=== PATIENT | male | born 1940 | race Caucasian/White ===

== ENCOUNTER 2019-06-11 10:10 | Outpatient (CLI) | payer MEDICARE, OTHER ==
[2019-06-11 11:40] LABS: #Eosinphils 0.2 thou/uL (0.0-0.7); #Lymphocytes 1.3 thou/uL (1.20-3.40); #Monocytes 0.7 thou/uL (0.11-0.59); #Neutrophils 7.3 thou/uL (1.40-6.50); %Basophils 0.1 % (0.0-1.0); %Eosinophils 1.8 % (0.0-10.0); %Lymphocytes 14.1 % (21.0-51.0); %Monocytes 7.7 % (0.0-10.0); %Neutrophils 76.4 % (42.0-75.0); Hemoglobin 14.9 g/dL (14.0-18.0); Mean Corpuscular HGB CONC 34.6 g/dL (32.0-36.0); Mean Corpuscular Hemoglobin 37.1 pg (27.0-31.0); Mean Platelet Volume 8.5 fL (7.4-10.4); Platelet Count 187 thou/uL (130-400); RBC Distribution Width 11.4 % (11.5-14.5); Red Blood Cell (RBC) Count 4.02 mill/uL (4.70-6.10); White Blood Cell (WBC) Count 9.5 thou/uL (4.8-10.8)
[2019-06-11 12:07] LABS: Anion Gap 14 mmol/L (10-20); BUN (Urea Nitrogen) 18 mg/dL (8.4-25.7); Calc. Creatinine Clearance 0 mL/min (70-130); Calcium 9.2 mg/dL (7.8-10.44); Carbon Dioxide 26 mmol/L (23-31); Chloride 106 mmol/L (98-107); Estimated GFR-MDRD 61; Glucose 106 mg/dL (83-110); Potassium 4.7 mmol/L (3.5-5.1); Sodium 141 mmol/L (136-145)
== END 2019-06-11 10:11 | disposition home or self-care (01) ==
LOC: LABBT 10:10
PROVIDERS: ATTEND Orthopaedic Surgery
DX: Z01.818 Encounter for other preprocedural examination (principal); S76.112A Strain of left quadriceps muscle, fascia and tendon, initial encounter
CPT/HCPCS: 80048; 85025; 93005; 93010

== ENCOUNTER 2019-06-14 07:49 | Day surgery (SDC) | payer MEDICARE, OTHER ==
[2019-06-11 10:48] VITALS: BMI 27.6
[2019-06-14] MEDS ORDERED: Fentanyl 100 MCG/2 ML VIAL ONE ×2 (07:57→09:08)
[2019-06-14] MEDS ORDERED: Midazolam HCl 2 mg/2 ml Vial ONE (07:57)
[2019-06-14] MEDS ORDERED: Dexamethasone 4 mg/ml Vial ONE (07:57)
[2019-06-14] MEDS ORDERED: PACU-Morphine 4MG/ML VIAL SLOW IVP PRN (10:39)
[2019-06-14] MEDS ORDERED: Promethazine HCl 25 MG/ML VIAL SLOW IVP PRN (10:39)
[2019-06-14] MEDS ORDERED: Morphine Sulfate 2 MG/ML SYRINGE SLOW IVP PRN (10:39)
[2019-06-14] MEDS ORDERED: Promethazine HCl 25 MG/ML VIAL IM PRN (10:39)
[2019-06-14] MEDS ORDERED: Ondansetron HCl/PF 4 MG/2 ML Vial IVP PRN (10:39)
[2019-06-14] MEDS ORDERED: Meperidine HCl/PF 25 MG/ML VIAL SLOW IVP PRN (10:39)
[2019-06-14] MEDS ORDERED: HYDROmorphone 2 MG/ML VIAL SLOW IVP PRN (10:39)
--- NOTE | 2019-06-14 11:57 | OP ---
DATE OF PROCEDURE: 06/14/2019 PLACEMENT SECRETARY: Giancarlo Drummond PA-C ANESTHESIA: General plus femoral nerve block. PREOPERATIVE DIAGNOSIS: Ruptured left quadriceps femoris tendon. POSTOPERATIVE DIAGNOSIS: Ruptured left quadriceps femoris tendon. PROCEDURE PERFORMED: Repair of quadriceps tendon, left knee. OPERATIVE FINDINGS: There was complete disruption of the quadriceps from superior aspect of the patella with extension of the medial and lateral retinaculum. There was one small fiber of the quadriceps tendon that was intact on the inferior surface, but 95% of the tendon was ruptured. No other obvious intra-articular damage. DESCRIPTION OF PROCEDURE: After satisfactory anesthesia was induced in supine position, sequential compression device was placed on the nonoperative leg throughout the procedure. The left leg was then prepped and draped in routine sterile fashion, elevated, exsanguinated with an Esmarch bandage. The tourniquet was inflated to 300 mmHg. A longitudinal midline incision was made, carried down through the subcutaneous tissues. Bleeding points were controlled with Bovie cautery. After incising the deep fascia, large hematoma was encountered and evacuated with sharp blunt dissection and thorough irrigation. The above findings were noted. The ends of the tendon were freshened and the bony surface of the superior patella was freshened. Two heavy FiberWire sutures were then placed in modified Sanchez type fashion. On the lateral, sutured the small inferior portion of the tendon that was remaining was incorporated in the repair. These were then passed through drill holes in the patella and tied with the knee extension. The medial and lateral retinaculum in the periosteum of the superior aspect of the patella was then repaired with multiple sutures of interrupted #2 Vicryl. This appeared to give good stable repair. The knee could be placed in 90 degrees of flexion without excessive tension on the suture line. The wound was again thoroughly irrigated. The subcutaneous tissues were closed with interrupted 2-0 Vicryl and the skin closed with a staple gun. A sterile bulky compressive dressing was applied. The tourniquet deflated after 41 minutes. The foot promptly pinked up. The patient was placed back into his knee immobilizer. He was awakened, taken to the recovery room in stable condition. There were no apparent intraoperative complications. The estimated blood loss was negligible. The patient will be discharged home in satisfactory condition. Instructed on ice, elevation, and ambulation with a walker, partial weightbearing. He was instructed of isometrics of his quadriceps and hamstrings and calf pumps and assisted straight leg raises with a knee immobilizer on. No active range of motion of his knee yet. But, he is in the immobilizer at all times except for skin care. He was given a prescription for tramadol for pain 40 tablets with one refill. He will be rechecked in my office in approximately 2 weeks or sooner if there are any problems prior to that time. Job ID: [id number]
[2019-06-14] MEDS ORDERED: traMADol HCl 50 MG TAB ONE (12:49)
--- NOTE | 2019-06-14 12:53 | HP ---
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 He fell to the ground and had immediate left knee pain and inability to extend his knee. He has had no previous knee problems. PAST MEDICAL HISTORY: The patient is otherwise in good health. He has a history of hypertension, previous coronary artery bypass in 2001 without further problems. 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 He is in remission without further problems. CURRENT MEDICATIONS: Include: 1. Omeprazole. 2. Xanax. 3. Low-dose aspirin. 4. Losartan. 5. Amlodipine. 6. Metoprolol. 7. Statin medication. ALLERGIES: HE IS ALLERGIC TO CODEINE AND HYDROCODONE, WHICH CAUSE VOMITING AND NAUSEA. FAMILY HISTORY: Otherwise unremarkable. SOCIAL HISTORY: Otherwise unremarkable. REVIEW OF SYSTEMS: Otherwise unremarkable. PHYSICAL EXAMINATION: GENERAL: Reveals a healthy elderly male. HEENT: Unremarkable. NECK: Supple. CHEST: Clear. HEART: Regular rate and rhythm. ABDOMEN: Soft, nontender. RECTAL: Deferred. GENITAL: Deferred. EXTREMITIES: Pertinent findings of the left knee, there is a moderate effusion and moderate diffuse swelling about the left knee. There is no definite ecchymosis. There appears to be patella baja. There is tenderness over the distal quadriceps and there appears to be a palpable defect proximal to the patella. Range of motion is limited secondary to pain. He is unable to extend his knee. Neurovascular exam is otherwise intact. There is good capillary refill. Pulses are trace. There is no pain with range of motion of his hip. Neurovascular exam is intact. DIAGNOSTIC STUDIES: X-rays of the left knee reveal no definite fractures, although there is a questionable small calcific density proximal to the patella, which could represent a small avulsion fracture. IMPRESSION: Ruptured left quadriceps tendon. PLAN: Surgical repair. The nature of the surgery, length of recovery, and potential complications such as infection, loss of motion, incomplete relief, weakness, neurovascular injury, thromboembolic phenomena, rupture with repair, need for additional treatment, and/or repeat surgery have been discussed in detail with the patient and his . Job ID: [id number]
== END 2019-06-14 13:48 | disposition home or self-care (01) ==
LOC: SDC 07:49
PROVIDERS: ATTEND Orthopaedic Surgery
PROC: 0LMM0ZZ Reattachment of Left Upper Leg Tendon, Open Approach (ICD-10-PCS; principal; 2019-06-14)
DX: S76.112A Strain of left quadriceps muscle, fascia and tendon, initial encounter (principal); I10 Essential (primary) hypertension; E78.5 Hyperlipidemia, unspecified; I25.10 Atherosclerotic heart disease of native coronary artery without angina pectoris; F41.9 Anxiety disorder, unspecified; Z79.82 Long term (current) use of aspirin; Z79.899 Other long term (current) drug therapy; Z88.5 Allergy status to narcotic agent; Z95.1 Presence of aortocoronary bypass graft; W19.XXXA Unspecified fall, initial encounter; Y93.89 Activity, other specified; Y92.096 Garden or yard of other non-institutional residence as the place of occurrence of the external cause
CPT/HCPCS: 27385; 97116; 97139; C1713; J0690; J1100; J2250; J3010

== ENCOUNTER 2019-08-08 22:52 | Inpatient (IN) | payer MEDICARE, OTHER ==
--- NOTE | 2019-08-08 23:57 | RAD ---
Exam: Chest one view HISTORY:Dyspnea. Dry cough. Comparison: 08/28/2003 and 07/30/2005 FINDINGS: Cardiac silhouette:Normal cardiac silhouette. Sternotomy wires are redemonstrated. Aorta: Atherosclerosis of the aorta Pulmonary vessels: Normal Costophrenic angles: Clear LUNGS: No masses or consolidation. Chronic lung parenchymal changes are noted. There is a suture rolan n projecting over the right hemithorax. Pneumothorax: None Osseous abnormalities: None IMPRESSION: 1. No acute cardiopulmonary process. 2. Presumed postoperative changes in the right lung. 3. Atherosclerosis
[2019-08-09] LABS: #Eosinphils 0.1 thou/uL (0.0-0.7); #Lymphocytes 1.4 thou/uL (1.20-3.40); #Neutrophils 7.6 thou/uL (1.40-6.50); %Basophils 0.1 % (0.0-1.0); %Lymphocytes 14.2 % (21.0-51.0); %Monocytes 9.4 % (0.0-10.0); %Neutrophils 75.4 % (42.0-75.0); Hemoglobin 7.9 g/dL (14.0-18.0); Mean Corpuscular HGB CONC 32.7 g/dL (32.0-36.0); Mean Corpuscular Hemoglobin 31.7 pg (27.0-31.0); Mean Platelet Volume 6.8 fL (7.4-10.4); Platelet Count 333 thou/uL (130-400); RBC Distribution Width 16.4 % (11.5-14.5); Red Blood Cell (RBC) Count 2.49 mill/uL (4.70-6.10); White Blood Cell (WBC) Count 10.1 thou/uL (4.8-10.8)
[2019-08-09 00:33] LABS: Bacteria/HPF None Seen HPF (None Seen); Bilirubin Negative (Negative); Blood, Urine Negative (Negative); Clarity Clear (Clear); Glucose, Urine (Dipstick) Normal (Negative); Leukocyte Negative Leu/uL (Negative); Nitrite Negative (Negative); Protein, Urine (Dipstick) 30 mg/dL (Neg-Trace); RBC/HPF 0-3 HPF (0-3); Squamous Epithelial None Seen HPF (0-3); WBC/HPF 0-3 HPF (0-3)
[2019-08-09 00:54] LABS: ALT (SGPT) 39 U/L (8-55); AST (SGOT) 35 U/L (5-34); Albumin 2.6 g/dL (3.4-4.8); Alkaline Phosphatase 176 U/L (40-110); Anion Gap 13 mmol/L (10-20); BUN (Urea Nitrogen) 19 mg/dL (8.4-25.7); Bilirubin, Total 0.6 mg/dL (0.2-1.2); Calc. Creatinine Clearance 0 mL/min (70-130); Calcium 8.2 mg/dL (7.8-10.44); Carbon Dioxide 24 mmol/L (23-31); Chloride 98 mmol/L (98-107); Estimated GFR-MDRD 62; Globulin 3.9 g/dL (2.4-3.5); Glucose 154 mg/dL (83-110); Lipase 61 U/L (8-78); Magnesium 1.6 mg/dL (1.6-2.6); Potassium 4.3 mmol/L (3.5-5.1); Protein, Total 6.5 g/dL (5.8-8.1); Sodium 131 mmol/L (136-145)
[2019-08-09 03:43] LABS: Iron 8 ug/dL (65-175); Iron Binding Capacity, Total 89 mcg/dL (261-462)
[2019-08-09 04:35] VITALS: BMI 24.5
[2019-08-09] MEDS ORDERED: Ondansetron ODT 4 MG TAB SL PRN ×2 (04:40→21:05)
[2019-08-09] MEDS ORDERED: Ondansetron PF 4 MG/2 ML Vial IVP PRN ×3 (04:40→21:05)
[2019-08-09] MEDS ORDERED: Sodium Chloride 0.9% 1,000 ML IV SCH (04:45)
[2019-08-09 06:49] LABS: Hemoglobin 9.3 g/dL (14.0-18.0)
[2019-08-09] MEDS ORDERED: Ondansetron ODT 4 MG TAB PO PRN (11:44)
[2019-08-09] MEDS: Acetaminophen 500 MG TAB PO PRN ×2 (12:11→17:45)
[2019-08-09] MEDS: Benzonatate 100 MG CAP PO PRN ×2 (12:16→17:46)
[2019-08-09] MEDS ORDERED: Guaifenesin DM 100-10/5 ML UDCUP PO PRN (12:17)
[2019-08-09] MEDS ORDERED: Oseltamivir 75 MG CAP PO SCH (12:30)
[2019-08-09] MEDS: Sodium Chloride 0.9% 1,000 ML IV SCH ×2 (14:21→21:45)
--- NOTE | 2019-08-09 17:14 | HP ---
PRIMARY CARE PROVIDER: Dr. Ming Calles. CHIEF COMPLAINT: Cough, fever, dizziness, and lethargy. HISTORY OF PRESENT ILLNESS: This is a 79-year-old male, who presented to [facility] Emergency Department complaining of cough, fever, generalized weakness over the last 1 to 2 weeks. The patient has noted indolent fever with associated dry cough, recently prescribed Augmentin and prednisone for approximately 5 days. The patient states his symptoms persisted with dry cough, progressive weakness, and general malaise. 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 The patient admits to receiving influenza vaccination this season, but denied any known exposure or family members with similar symptoms. The patient denied any recent travel history. The patient denied any change to his bowel habits, recent diarrhea, or dysuria. The patient took [id number] cough remedy without specific relief of his symptoms. The patient denies any orthopnea or difficulty lying flat. The patient denies any lower extremity edema. In the emergency room, the patient underwent general evaluation including chest imaging showing no acute infiltrate. Screening metabolic panel showed evidence of anemia with initial hemoglobin of 7.9. Last hemoglobin on record 06/11/2019, showed a level of 14.9. The patient was typed and crossed for 2 units of packed red blood cells and transfuse 1 unit in the emergency room. The patient states after the transfusion, he felt somewhat improved and more energetic; however, was documented with multiple low-grade fevers with a current level of 101.7 degrees Fahrenheit. PAST MEDICAL HISTORY: 1. Sarcoma, status post surgical resection and chemotherapy at [facility]. 2. Hypertension with recent discontinuation of blood pressure medication. 3. Coronary artery disease, status post coronary artery bypass grafting x2 vessels. PAST SURGICAL HISTORY: 1. Status post coronary artery bypass grafting x2 vessels. 2. Status post surgical resection of portion of the spleen. 3. Status post cholecystectomy. 4. Status post partial colon resection. 5. Status post resection of the right middle lobe. 6. Status post repair of left patellar tendon rupture. CURRENT MEDICATIONS: 1. Enteric-coated aspirin 81 mg p.o. daily. 2. Metoprolol tartrate 25 mg p.o. daily. 3. Xanax 0.25 mg p.o. b.i.d. p.r.n. 4. Prilosec daily. ALLERGIES: CODEINE AND HYDROCODONE. FAMILY HISTORY: Positive for hypertension. SOCIAL HISTORY: , accompanied by his in the hospital. 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 Drinks a glass of wine daily. No tobacco or illicit drug use. REVIEW OF SYSTEMS: CONSTITUTIONAL: Negative for weight loss or gain, ability to conduct usual activities. SKIN: Negative for rash, itching. EYES: Negative for double vision, pain. ENT/MOUTH: Negative for nose bleeding, neck stiffness, pain, tenderness. CARDIOVASCULAR: Negative for palpitations, dyspnea on exertion, orthopnea. RESPIRATORY: Negative for shortness of breath, wheezing, cough, hemoptysis, fever or night sweats. GASTROINTESTINAL: Negative for poor appetite, abdominal pain, heartburn, nausea, vomiting, constipation, or diarrhea. GENITOURINARY: Negative for urgency, frequency, dysuria, nocturia. MUSCULOSKELETAL: Negative for pain, swelling. NEUROLOGIC/PSYCHIATRIC: Negative for anxiety, depression. ALLERGY/IMMUNOLOGIC: Negative for skin rash, bleeding tendency. Otherwise negative except as stated per HPI. PHYSICAL EXAMINATION: VITAL SIGNS: On admission, blood pressure 130/63, pulse 89, respiratory rate 17, temperature 99.5 degrees Fahrenheit with a current level of 101.7 degrees Fahrenheit, and O2 saturation 95% on room air. GENERAL APPEARANCE: This is a 79-year-old male, alert and oriented x3, pleasant, responsive, in no acute distress. HEENT: Pupils are equal, round, reactive to light and accommodation. Extraocular muscles are intact. No scleral icterus. No conjunctival injection. Nares are patent. OP is clear. Teeth in good repair. NECK: Supple. No cervical adenopathy. No thyromegaly. No carotid bruits. No JVD appreciated. Cervical spine with full active and passive range of motion. No meningeal signs noted. CHEST: Lungs are clear to auscultation bilaterally. CARDIOVASCULAR: S1 and S2 with 1/6 systolic ejection murmur in the right upper sternal border. ABDOMEN: Rounded, soft, nontender, and nondistended. Bowel sounds are positive in all 4 quadrants. There is no hepatosplenomegaly. No abdominal bruits. No rebound or guarding appreciated. EXTREMITIES: Warm and dry with fair turgor. No clubbing, cyanosis, or asymmetric edema appreciated. Postsurgical changes of the left patellar region consistent with prior surgical history. No fluctuance or erythema noted. Pulses palpable distally at the dorsalis pedis, posterior tibial, and popliteal arteries bilaterally. Capillary refill less than 2 seconds. NEUROLOGIC: Cranial nerves 2 through 12 are grossly intact. No focal or lateralizing signs appreciated. PERTINENT LABORATORY DATA AND X-RAY FINDINGS: Sodium 131, potassium 4.3, chloride 98, CO2 of 24, BUN 19, creatinine 1.15, estimated GFR of 62, glucose 154, lactic acid level 0.8, calcium 8.2, magnesium 1.6, serum iron level 8, TIBC 89, ferritin 2609, total bilirubin 0.6, AST 35, ALT of 39, alkaline phosphatase 176. Troponin-I negative x1. BNP 204. Lipase 61. CBC showed a white blood cell count of 10.1, hemoglobin ranged between 7.9 to 9.3, MCV 97, platelet count 333 with 75% neutrophils. Urinalysis negative. Portable chest x-ray dated 08/08/2019 showed no acute cardiopulmonary process. EKG dated 08/08/2019 showed incomplete right bundle-branch block pattern. No acute ST-T wave changes noted. ASSESSMENT AND PLAN: 1. Symptomatic anemia. Suspect GI bleed with guaiac-positive stool x1. We will continue serial hemoglobin and hematocrit monitoring. Status post 1 unit of packed red blood cells. GI consult in progress with plans for EGD and colonoscopy evaluation in the next 24 hours. Continue Protonix IV. Repeat CBC in the a.m. Hold all anticoagulation and NSAIDs. 2. Febrile illness. Exact etiology unclear. Questionable influenza or viral infection. Check influenza A and B. Check blood cultures x2. Serial monitoring of temperature. Tylenol p.r.n. 3. Acute blood loss anemia. Suspected as outlined in #1. See #1 above for management. 4. Hyponatremia. Mild hyponatremia on metabolic survey. Continue intravenous normal saline at 100 mL/h. Serial sodium monitoring. 5. Sarcoma. History of sarcoma, status post surgical resection and chemotherapy. Continue supportive management with outpatient followup. 6. Prophylaxis. SCDs while in bed. Protonix IV. 7. Code status is full. Surrogate medical decision maker is the patient's spouse. Job ID: [id number]
[2019-08-09] MEDS: Oseltamivir 75 MG CAP PO SCH (17:46)
--- NOTE | 2019-08-09 18:01 | CON ---
DATE OF CONSULTATION: 08/09/2019 REASON FOR CONSULTATION: Anemia and Hemoccult-positive stool. 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 His blood count was apparently 10.2 at that time, recently had been 14 back in April. In the interim, he had an injury while blowing leaves, where he tore his left quadriceps tendon and had to have a surgery. He had been taking quite a bit of NSAIDs after that surgery, which took place on June 14. Dr. Calles had him to do a Hemoccult recently that was positive. He saw Dr. Lopez last week and was scheduled for an EGD and colonoscopy this coming week. Over the weekend, he began to feel a bit weaker and actually dizzy a little bit on Friday when he was at work. On Friday, he had a hemoglobin checked, it was 10, but he was just not feeling well. He ended up coming to the emergency room. Here, his hemoglobin was in the range of 7. He was given 1 unit of blood, it has come up to 9. He is feeling a little better. He has had a cough that started shortly after his surgery. He did see Dr. Calles , his primary doctor and was treated for bronchitis with antibiotic. Reviewing the ER records, actually the triage note indicates, he came to the hospital for fever of 102, body aches, not feeling well, and being a bit lightheaded and having a dry cough. He denies any melena, hematochezia, or hematemesis. Appetite has been down since the surgery. He did not have significant blood loss at time of his knee surgery he reports. He was not transfused at that time. He denies losing weight, dysuria, frequency, urgency, night sweats, or rigors. Cough has been nonproductive. He had a chest x-ray in the emergency room, which was read as normal. His bowel movements have been brown. GI review of systems decreased appetite since his knee surgery. His states he usually bounces back quite slow from surgery. He has had no dysphagia or odynophagia. He has been heme-positive. He has had fever and cough on and off since . The family notes he has had some increased perspiration over the past 7 to 10 days. He is not really sure if he has rigors, but we did again reviewing the admission triage note, he came in to the emergency room for fever of 102. PAST MEDICAL HISTORY: Coronary artery bypass graft surgery x2 in 2001. 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 He is surveyed to the [facility] yearly and just recently had a CAT scan of chest, abdomen, and pelvis in April, which he reports showed no signs of recurrence. He has history of hypertension. He has history of reflux and reports he has taken Prilosec since for about 30 years now. Familial tremor. PAST SURGICAL HISTORY: Other than the CABG and the retroperitoneal sarcoma, he has also had inguinal hernia repairs, appendectomy, and cholecystectomy. REVIEW OF SYSTEMS: As far as skin, no rash. No adenopathy. He has been taking NSAIDs for arthritic pain, but had stopped those. He was taking those mainly after his surgery on his left quadriceps. MEDICATIONS: At home: 1. Aspirin. 2. Metoprolol. 3. Xanax. 4. Prilosec. 5. He had been on amlodipine and lovastatin, which were stopped recently. SOCIAL HISTORY: Drinks socially in the past. Does not smoke. His is at the bedside. 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 CURRENT MEDICATIONS: Medications presently: 1. Zofran. 2. Tessalon. 3. Normal saline at 100. PHYSICAL EXAMINATION: VITAL SIGNS: T-max 101.7 here and 99.9 home, blood pressure 142/69, pulse 88, and O2 saturation 94%. GENERAL: He is mildly pale. He is in no distress. HEENT: Oropharynx, no lesions. NECK: Supple. No adenopathy. There is no evidence of axillary or inguinal adenopathy. LUNGS: Clear bilaterally, maybe just a bit decreased in the right upper chest. HEART: He has regular rate and rhythm without clicks or murmurs. ABDOMEN: Soft and nontender. SKIN: Warm. He has a well-healed scar in the midline with no hernias. Chest incision is well healed as well. Inguinal area reveals no adenopathy or hernias. EXTREMITIES: Reveal no clubbing, cyanosis, or edema. Skin well-healed in the left knee. RECTAL: Reveals brown stool. LABORATORY DATA: Hemoglobin is 9.3 after 1 unit of blood. It was 7.9 at 2300 hours last night. White count was 10.1 and platelet count was 333. He has 75% neutrophils on his peripheral smear on admission. comprehensive metabolic profile on the 16 notable for sodium 131, potassium 4.3, and BUN and creatinine are 19 and 1.15. Lactic acid was 0.8 at midnight tonight. Magnesium 1.1. Iron 8, TIBC 89 , and ferritin 2608. AST 35, ALT 39, and alkaline phosphatase 176. BNP was 203. Albumin is 2.6, total protein is 6.5, and lipase is 61. Chest x-ray is read as normal. ASSESSMENT: 1. Anemia. The etiology is unclear. He has been on nonsteroidal anti- inflammatory drugs at home after a knee surgery. He has never had a colonoscopy. One would think about peptic ulcer disease in light of his recent surgery and nonsteroidal anti-inflammatory drugs, but he has been on a proton pump inhibitor for 30 years , it makes little bit less likely. He has no signs of acute hemorrhage at this time. He was Hemoccult positive in the outpatient setting, who has had brown stool and no melena. 2. Fever. Apparently, he has been having some fever on and off, maybe some chills and diaphoresis. He has no evidence of murmurs, no rashes, no adenopathy. Here , he had a fever. He reports a fever 102 at home. In the emergency room, he had a temperature 99 and this morning, he is 101.7. He denies any myalgias or arthralgias now, when he came in he reported them. Differential diagnosis would include a flu, some type of bacteremia, although it is not really a good source. He did have a remote history of a sarcoma, which raises concern for this, but he had a recent scanning at [facility] in April, which he reports was negative showing no evidence of recurrence. Pulmonary embolus or deep venous thrombosis would be a concern, but in light of the recent surgery in May, which seem a little less likely. RECOMMENDATIONS: 1. I have discussed with Dr. Gaines of Internal Medicine and we are going to evaluate him for the flu and some blood cultures. 2. We will go and start on the IV PPI. 3. We will keep him on a liquid diet and consider endoscopy for tomorrow. However, with his cough and fever, unless there is any acute bleeding, we will hold off on that. 4. DVT prophylaxis is reasonable. PlexiPulses would not be a problem at all. If it is felt that he needs to be on some Lovenox, I do not overlay of a problem with that. We can watch his hemoglobin closely here in the hospital. He has not had any acute hemorrhage. Job ID: [id number] [facility]
[2019-08-09] MEDS ORDERED: Metoprolol Tartrate 25 MG TAB PO SCH (21:30)
[2019-08-09] MEDS: ALPRAZolam 0.25 MG TAB PO PRN (21:35)
[2019-08-10] MEDS: Benzonatate 100 MG CAP PO PRN ×4 (00:29→19:54)
[2019-08-10] MEDS: Acetaminophen 500 MG TAB PO PRN ×4 (00:29→22:55)
[2019-08-10] MEDS: Sodium Chloride 0.9% 1,000 ML IV SCH ×2 (00:30→14:23)
[2019-08-10 06:13] LABS: ALT (SGPT) 34 U/L (8-55); AST (SGOT) 22 U/L (5-34); Albumin 2.7 g/dL (3.4-4.8); Alkaline Phosphatase 188 U/L (40-110); Anion Gap 13 mmol/L (10-20); BUN (Urea Nitrogen) 11 mg/dL (8.4-25.7); Bilirubin, Total 0.8 mg/dL (0.2-1.2); Calc. Creatinine Clearance 64 mL/min (70-130); Calcium 8.7 mg/dL (7.8-10.44); Carbon Dioxide 21 mmol/L (23-31); Chloride 106 mmol/L (98-107); Estimated GFR-MDRD 78; Globulin 4.1 g/dL (2.4-3.5); Glucose 128 mg/dL (83-110); Potassium 3.8 mmol/L (3.5-5.1); Protein, Total 6.8 g/dL (5.8-8.1); Sodium 136 mmol/L (136-145)
[2019-08-10 06:51] LABS: Hemoglobin 10.3 g/dL (14.0-18.0); Mean Corpuscular HGB CONC 32.2 g/dL (32.0-36.0); Mean Corpuscular Hemoglobin 31.7 pg (27.0-31.0); Mean Corpuscular Volume 98.5 fL (78.0-98.0); Mean Platelet Volume 7.4 fL (7.4-10.4); Platelet Count 327 thou/uL (130-400); Red Blood Cell (RBC) Count 3.24 mill/uL (4.70-6.10); White Blood Cell (WBC) Count 10.7 thou/uL (4.8-10.8)
[2019-08-10] MEDS: ALPRAZolam 0.25 MG TAB PO PRN ×2 (08:05→19:54)
[2019-08-10 08:14] LABS: Band 7 % (5-11); Eosinophils 2 % (0-10); Lymphocytes 11 % (21-51); MDiff Complete? YES; Monocytes 9 % (0-10); Neutrophil 71 % (42-75); Platelet Morphology Comment Appears Adequate; Polychromasia SLIGHT = 2-3 cells (100X) (0-2/hpf)
[2019-08-10] MEDS ORDERED: Pantoprazole 40 MG VIAL IVP SCH (09:00)
[2019-08-10] MEDS: Oseltamivir 75 MG CAP PO SCH (10:22)
--- NOTE | 2019-08-10 10:53 | PDOC.HOSPP ---
- Subjective Encounter Date: 08/10/19 Encounter Time: 10:45 Subjective: f/u for febrile illness and GI bleed s/p 1u PRBC's. Indolent fever noted but r/ o for Influenza and negative NAAT viral panel. - Objective Vital Signs & Weight: Vital Signs (12 hours) Temp Pulse Resp BP Pulse Ox 08/10/19 08:07 93 16 94 L 08/10/19 07:53 100.5 F H 88 20 161/69 H 91 L 08/10/19 04:00 98.2 F 72 18 138/69 95 08/10/19 00:00 98.8 F 76 20 148/68 H 95 Weight Weight 152 lb 1.903 oz Result Diagrams: 08/10/19 05:20 08/10/19 05:20 Additional Labs: Microbiology 08/09/19 16:31 Nasopharyngeal swab Respiratory Virus Panel (PCR) - Final 08/09/19 12:12 Nasal swab Influenza Types A,B Direct EIA - Final 08/09/19 12:11 Venous blood - Right Arm Blood Culture - Preliminary Specimen has been received and culture in progress. No Growth to date. 08/09/19 12:11 Venous blood - Left Hand Blood Culture - Preliminary Specimen has been received and culture in progress. No Growth to date. Laboratory Tests 08/08/19 08/09/19 08/09/19 23:47 00:15 03:07 WBC 10.1 Hgb 7.9 L Lactic Acid 0.8 Iron 8 L Ferritin Alkaline Phosphatase Albumin Vitamin B12 Folate 08/09/19 08/09/19 08/10/19 03:07 06:30 05:19 WBC Hgb 9.3 L Lactic Acid Iron Ferritin 2608.64 H Alkaline Phosphatase Albumin Vitamin B12 Folate 13.20 08/10/19 08/10/19 05:20 05:20 WBC Hgb Lactic Acid Iron Ferritin Alkaline Phosphatase 188 H Albumin 2.7 L Vitamin B12 659 Folate Radiology Reviewed by me: Yes (PCXR - no acute infiltrate) Hospitalist ROS - Medication Medications: Active Medications Generic Name Dose Route Start Last Admin Trade Name Freq PRN Reason Stop Dose Admin Acetaminophen 1,000 mg 08/09/19 11:44 08/10/19 08:05 Tylenol PO 1,000 mg Q6H PRN Administration Mild Pain (1-3) Albuterol/Ipratropium 3 ml 08/09/19 15:00 08/10/19 08:07 Duoneb NEB 3 ml [id number] AMANDO Administration Alprazolam 0.25 mg 08/09/19 21:04 08/10/19 08:05 Xanax PO 0.25 mg Q4H PRN Administration Anxiety Benzonatate 100 mg 08/09/19 11:44 08/10/19 08:05 Tessalon PO 100 mg Q6H PRN Administration Cough Sodium Chloride 1,000 mls @ 100 mls/hr 08/09/19 11:45 08/10/19 00:30 Normal Saline 0.9% IV 1,000 mls .Q10H AMANDO Administration Oseltamivir Phosphate 75 mg 08/09/19 21:00 08/10/19 10:22 Tamiflu PO 08/13/19 21:01 Not Given BID AMANDO - Exam General Appearance: NAD, awake alert Eye: PERRL, anicteric sclera ENT: normocephalic atraumatic, no oropharyngeal lesions Neck: supple, symmetric, no JVD, no thyromegaly Heart: RRR, no gallops, no rubs, normal peripheral pulses Respiratory: CTAB, no wheezes, no rales, no ronchi Gastrointestinal: soft, non-tender, non-distended, normal bowel sounds, no palpable masses Extremities: no cyanosis, no clubbing, no edema Skin: normal turgor, no lesions Neurological: cranial nerve grossly intact, no new deficit Musculoskeletal: normal tone, normal strength Psychiatric: normal affect, A&O x 3 Hosp A/P (1) GI bleed Code(s): K92.2 - GASTROINTESTINAL HEMORRHAGE, UNSPECIFIED Plan: Suspected, Endoscopy pending, serial H/H monitoring (2) Febrile illness Code(s): R50.9 - FEVER, UNSPECIFIED Status: Acute Plan: Unclear etiology, consider CT chest/abd, consult ID service for any further recommendations, supportive currently (3) Symptomatic anemia Code(s): D64.9 - ANEMIA, UNSPECIFIED Status: Acute Plan: s/p 1u PRBC's, plan for endoscopy in am, serial H/H (4) Acute blood loss anemia Code(s): D62 - ACUTE POSTHEMORRHAGIC ANEMIA Status: Acute (5) Hyponatremia Code(s): E87.1 - HYPO-OSMOLALITY AND HYPONATREMIA Status: Acute Plan: Resolved - Plan plan discussed w/ family, social sciences research scientist, out of bed/ambulate, DVT proph w/SCDs Stable currently Decrease IVF's 75ml/h Continue PPI D/C Tamiflu Start FeSO4 325mg BID AM lab: H/H
[2019-08-10] MEDS ORDERED: Iopamidol-370 76% 500 ML 1 ML ONE (12:45)
--- NOTE | 2019-08-10 15:16 | CT ---
CT ANGIO OF CHEST PERFORMED WITH INTRAVENOUS CONTRAST ENHYANCEMENT WITH 3D RECONSTRUCTIONS: 08/10/19 HISTORY: Cough and fever. Patient is status post knee surgery. There is also a history of a retroperitoneal li posarcoma with left nephrectomy. Also history of resection of a pulmonary mass. There is postoperative changes in the right lower lobe. No pulmonary nodules or effusions noted. The re is some pleural thickening present. No infiltrative lung process. Thoracic aorta is normal in caliber. There is fairly good pulmonary artery opacification and no CT ev idence for pulmonary embolus. Postop sternotomy changes are seen. No mediastinal or hilar adenopathy. The visualized portions of the liver and spleen appear unremarkable. There is partial visualization o f a solid well circumscribed mass measuring 9.8 cm in diameter in the region of the left renal bed. T his was only partially visualized on this exam. It shows some vascularity along the margins. Somewhat more decreased central portion suggesting necrosis. The visualized portion of the right kidney is no rmal. Postoperative clips are seen in the region of the left adrenal. Review of osseous structures show arthritic changes of the spine. IMPRESSION: 1. No CT evidence of pulmonary embolus. 2. Partially visualized large mass in the region of the left renal bed highly suspicious for lin plasm. CT of the abdomen and pelvis would be performed after discussion with Dr. Wright. POS: [facility]
--- NOTE | 2019-08-10 15:57 | ULT ---
BILATERAL LOWER EXTREMITY VENOUS DUPLEX EXAM: HISTORY: Bilateral leg pain and swelling. Recent knee surgery. FINDINGS: Real-time color Doppler evaluation of the right and left lower extremities was performed from groin t o calf. This includes evaluation of the common femoral, superficial and profunda femoral, saphenous, popliteal, and posterior tibial veins. This shows patent deep venous systems bilaterally. There is normal compressibility and augmentation. There is no evidence of DVT. IMPRESSION: No evidence of deep vein thrombosis of either lower extremity. POS: [facility]
[2019-08-10] MEDS: Ferrous Sulfate 325 MG TAB PO SCH (15:59)
--- NOTE | 2019-08-10 16:29 | CT ---
EXAM: ABDOMEN AND PELVIC CT SCAN WITHOUT IV CONTRAST: 08/10/19 HISTORY: Fever, history of liposarcoma. Exam done without IV contrast although the patient did have a previous CT angiogram of the chest at a pproximately 2:14 p.m. FINDINGS: There is some postsurgical changes in the right lower lobe and some minimal scarring. Small hiatal he rnia. Borderline fatty liver. Status post cholecystectomy. Pancreas and spleen are unremarkable. Righ t kidney appears unremarkable without hydronephrosis. There is a large mass in the left retroperitone um measuring 8.5 x 9.5 x 12.4 cm in size with some central low attenuation very concerning for a larg e probably necrotic neoplasm. There is some abnormally dilated veins in the mid abdomen with emptying into somewhat dilated superior mesenteric vein. Normal appearing appendix. Urinary bladder appears u nremarkable. Left africa-inguinal fat containing hernia. IMPRESSION: Large left retroperitoneal mass. Most evident for liposarcoma recurrence in the left retroperitoneum. Status post left nephrectomy and cholecystectomy. Small hiatal hernia. L4-L5 anterolisthesis with as sociated stenosis. Other findings as above. POS: [facility]
--- NOTE | 2019-08-10 16:57 | CON ---
DATE OF CONSULTATION: 08/10/2019 REASON FOR CONSULTATION: Fever. 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 He has had quite extensive surgical interventions with resection of one of the kidneys, part of the colon, also had a recurrence in the lung, which was resected in the right side. In addition, the patient has had chemotherapy and had coronary artery disease with bypass graft surgery for 2 vessels. Recently, he had a re-evaluation at [facility] with CT abdomen, pelvis, and chest with no evidence of recurrence. In May, the patient ruptured his left quadriceps, which was repaired by Dr. Garcia, a few days following that he developed a fever, and then after that respiratory symptoms and persistence of fever after a brief interruption, while he was taking prednisone, prescribed by his primary physician. He ended up admitted after he was found out to be severely anemic, has been transfused with 1 unit of packed red blood cells. A little bit of cough. No headaches. No visual symptoms, sore throat, odynophagia, or dysphagia. No back pain. No dyspnea or chest pain. No abdominal pain. No genitourinary symptoms. No joint symptoms. No skin disorder. No neurological symptoms. MEDICAL HISTORY: 1. Sarcoma with resection at [facility], apparently did not get chemotherapy. 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 He also has resection of the spleen, one kidney, and partial colon resection. 2. Recent patellar tendon rupture after a fall. ALLERGIES: CODEINE AND HYDROCODONE. FAMILY HISTORY: Hypertension. SOCIAL HISTORY: . 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 Never smoker. MEDICATIONS: 1. Xanax. 2. Tessalon. 3. Feosol. 4. Zofran. 5. Protonix. PHYSICAL EXAMINATION: VITAL SIGNS: T-max 101.7, then 100.5, now 98.8; blood pressure 147/68; pulse 85 ; respirations 18 to 20; and O2 saturation 91 to 95. SKIN: Normal. No lymphadenopathy. HEENT: Normal extraocular movements. Pupils are equal. Oral cavity moist. NECK: Supple. No jugular vein distention. LUNGS: Symmetric air entry. ABDOMEN: Soft, not distended or tender. No ascites. No bladder distention. EXTREMITIES: No joint inflammatory activity. The left tendon repair site without inflammatory changes. No edema. Pulses 1+ in dorsalis pedis. Moves extremities equally. NEUROLOGIC: Cognitive function appears to be intact. LABORATORY STUDIES: White cell count is 10.7, hemoglobin 10.3, platelets 327, 71% neutrophils, 7% bands, and 11% lymphocytes. Alkaline phosphatase 188, albumin 2.7, and globulin 4.1. Vitamin B12 of 659 and folate 13. Urinalysis with urobilinogen 2 and protein 30. Respiratory virus PCR negative. Two sets of blood cultures negative. CT of chest was ordered just now, there was no evidence of pulmonary embolism, there was a large mass in the region of left renal bed, highly suspicious for neoplasm. We have ordered an abdomen and pelvis CT to follow up on this study. ASSESSMENT: 1. History of liposarcoma. 2. Coronary artery disease. 3. Fever with respiratory symptoms and apparent recurrence of malignancy in the bed of the previous liposarcoma. DISCUSSION: The possibility of thromboembolism has been ruled out. An alternate infectious process is less likely. This is more likely to represent tumor fever, associated with recurrence of the sarcoma in the retroperitoneal area. We await for the abdomen and pelvis CT, and then probably need referral to [facility] for management. Job ID: [id number] [facility]
[2019-08-10] MEDS ORDERED: Iron Sucrose Complex 200 MG in Sodium Chloride 0.9% 250 ML 250 ML IVPB SCH (19:00)
--- NOTE | 2019-08-10 19:40 | PRG ---
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 He notes that he started taking the Tylenol lately, started coughing, and then he will get the fever. His vital signs today have bear that out. He has had brown stools with no bleeding. His flu test was negative. I talked with Dr. Gaines about that this morning. We discussed the options of CAT scan of the chest in light of his cough and fever. He did talk with Dr. Wright, who ordered a CAT scan of the chest, which showed a mass in the retroperitoneum on the left side. The CAT scan then was ordered of his abdomen and pelvis, which showed recurrence of the retroperitoneal mass in his left renal bed consistent with recurrent sarcoma. OBJECTIVE: VITAL SIGNS: Temperature is 99.2 max, pulse is 85, respirations 20, O2 saturation 92%, blood pressure 147/68. GENERAL: He is sitting comfortably in bed. His is at the bedside. His daughter is at bedside. LUNGS: Clear. HEART: Regular rhythm without clicks or murmurs. ABDOMEN: Nontender. LABORATORY DATA: White count 10.7, hemoglobin 10.3, platelet count 327. Sodium 136, potassium 3.8, BUN and creatinine are 11 and 0.94, alkaline phosphatase 188, LDH is 122, albumin 2.7, protein 6.8. ASSESSMENT: 1. Anemia. The patient does not recall being anemic with sarcoma in the past. He is Hemoccult positive. He had a very high ferritin, which is acute phase reactant, likely related to tumor. He had very low iron stores. There is always some risk of him having tumor ingrowth into the bowel. He reports this was not the case in the past. His colon resection was in the area of the sarcoma that was the policy for resection he states at [facility]. At this time, he does not want to undergo endoscopy once get back down to [facility] as soon as he can and is trying to work out getting maybe an appointment there later in the week. 2. Recurrent retroperitoneal mass, likely recurrent sarcoma. This is unfortunate, especially in light of the fact that he got good news about imaging back in April. 3. Cough, chronic. I think this is probably related to the sarcoma as well. He has some tumor and fever and it is very odd that before he has fever, he will have cough with throat clearing and then chills, then fever. If he takes the Tylenol when the cough starts, it all stops. Today, he has not been coughing hardly at all. His CAT scan revealed no evidence of pulmonary embolus nor a bronchitis or signs of chronic aspiration. RECOMMENDATIONS: 1. IV iron. If his doctors in the unit would prefer for us to do endoscopy but it looks like he is aiming to get out and get down there this week. There does not appear to be any acute hemorrhage, but I think his anemia probably is a component of GI blood loss. There may be a component of anemia of chronic disease with recurrent malignancy. It does not appear that the lesion in the retroperitoneum is hematoma. We will follow along with you. I have given the patient my cell phone number, so call me if they have any questions, and he has left a message with them this afternoon and hopefully they will get back to us tomorrow. 2. Would continue IV fluids at least until tomorrow. We will advance diet. Job ID: [id number]
[2019-08-10] MEDS ORDERED: Iron, Sodium Ferric Gluconate 250 MG in Sodium Chloride 0.9% 100 ML IVPB SCH (20:00)
[2019-08-10] MEDS ORDERED: Metoprolol Tartrate 25 MG TAB PO SCH (21:00)
[2019-08-11] MEDS: Sodium Chloride 0.9% 1,000 ML IV SCH (03:57)
[2019-08-11 06:26] LABS: Hemoglobin 9.5 g/dL (14.0-18.0); Platelet Count 336 thou/uL (130-400)
[2019-08-11] MEDS: ALPRAZolam 0.25 MG TAB PO PRN (07:24)
[2019-08-11] MEDS: Acetaminophen 500 MG TAB PO PRN (07:24)
[2019-08-11] MEDS: Ferrous Sulfate 325 MG TAB PO SCH (09:56)
[2019-08-11 11:21] VITALS: TEMP 97.7
[2019-08-11 12:22] VITALS: BP 138/70
--- NOTE | 2019-08-11 12:27 | DIS ---
DATE OF ADMISSION: 08/09/2019 DATE OF DISCHARGE: 08/11/2019 DISCHARGE DIAGNOSES: 1. Recurrent liposarcoma, left renal bed. 2. Acute normocytic anemia secondarily to recurrent liposarcoma, status post 1 unit of packed red blood cells. 3. Febrile illness, suspected secondary to recurrent liposarcoma. 4. Symptomatic anemia secondary to recurrent liposarcoma. 5. Hyponatremia, resolved. 6. Hypertension. CONSULTATIONS: 1. Dr. Guadalupe with Gastroenterology Service. 2. Dr. Kashif Wright with Infectious Disease Service. PERTINENT LABORATORY AND X-RAY FINDINGS: Lactic acid level 0.8. Magnesium level 1.6. Serum iron level 8, TIBC 89, ferritin 2609, alkaline phosphatase 188, lactate dehydrogenase 122. BNP 204. Albumin 2.7. Lipase 61. Vitamin B12 level 659, folate 13.2. CBC showed a hemoglobin ranging between 7.9 to 10.3. Blood cultures x2 dated 08/09/2019 showed no growth to date. Influenza A and B antigen dated 08/09/2019, negative. Respiratory virus panel dated 08/09/2019, negative. Portable chest x-ray dated 08/08/2019, showed no acute process. Postoperative changes in the right mid lung zone noted. CT angiogram of the chest and thorax dated 08/10/2019, showed no evidence for pulmonary embolus. Partially visualized large mass in the region of the left renal bed suspicious for neoplastic process. CT of the abdomen and pelvis dated 08/10/2019, showed large left retroperitoneal mass measuring 8.5 x 9.5 x 12.4 cm concerning for recurrent liposarcoma in the left retroperitoneal region. Status post left nephrectomy and cholecystectomy. Venogram of the lower extremities dated 08/10/2019 showed no evidence for DVT. HOSPITAL COURSE: The patient was admitted to the medical floor after initially presenting with cough, fever, dizziness, and lethargy. The patient underwent extensive evaluation including infectious rule out with influenza and respiratory virus panel screening. The patient was noted with intermittent fever elevation to a T-max of 101.7 degrees Fahrenheit. The patient was also noted with concomitant anemia with previous documented level of 14.9 on 06/11/2019, presenting with a hemoglobin of 7.9. The patient was typed and crossed for 2 units of packed red blood cells, receiving 1 unit in the emergency room. Serial H and H monitoring showed overall stable values and workup identifying the source of anemia. CT imaging of the chest and abdomen did reveal a large left retroperitoneal mass concerning for recurrent liposarcoma in the context of known prior history of liposarcoma, status post resection and left nephrectomy. The patient was evaluated by GI and Infectious Disease Service with recommendations to pursue management for the left retroperitoneal mass. The patient did receive IV iron infusion during his hospital course and was initiated on iron supplementation due to the low iron levels documented previously. Initial plans were for potential endoscopy due to the patient's anemia. However, after discovering the recurrent left retroperitoneal mass, endoscopy was canceled. The patient was noted with recurrent and intermittent fever during the hospital course, likely secondary to recurrent liposarcoma. Current plans and recommendations are to pursue follow up at [facility] in [facility] for discussions with his primary medical oncology team and consideration for surgical intervention. I have examined the patient at the time of discharge and discussed followup instructions. The patient verbalizes understanding and in agreement and ready for discharge on 08/11/2019. DISCHARGE MEDICATIONS: 1. Xanax 0.25 mg p.o. q.4 hours p.r.n. anxiety. 2. Lipitor 40 mg p.o. daily. 3. Metoprolol tartrate 25 mg p.o. at bedtime. 4. Omeprazole 20 mg p.o. at bedtime. 5. Tessalon Perles 100 mg p.o. q.6 hours p.r.n. 6. Ferrous sulfate 325 mg p.o. b.i.d. FOLLOWUP: The patient may follow up with primary care provider, Dr. Ming Calles. The patient will follow up with Medical Oncology Service at [facility] within 1 to 2 days of discharge. CONDITION ON DISCHARGE: Stable. ACTIVITY: Ad-jett. DIET: Regular. CODE STATUS: Full. DISPOSITION: Home on 08/11/2019. TIME SPENT: Total time preparing and coordinating discharge is 35 minutes. Job ID: [id number]
== END 2019-08-11 13:15 | disposition home or self-care (01) | DRG 844 ==
LOC: ERS 22:52 → T4-A 08-09 02:05 → OBSVTOIN 08-09 17:47
PROVIDERS: ADMIT Internal Medicine; ATTEND Internal Medicine
PROC: 30233N1 Transfusion of Nonautologous Red Blood Cells into Peripheral Vein, Percutaneous Approach (ICD-10-PCS; principal; 2019-08-09)
DX: C48.0 Malignant neoplasm of retroperitoneum (principal); E87.1 Hypo-osmolality and hyponatremia; D62 Acute posthemorrhagic anemia; K92.2 Gastrointestinal hemorrhage, unspecified; D63.0 Anemia in neoplastic disease; I10 Essential (primary) hypertension; R50.9 Fever, unspecified; I25.10 Atherosclerotic heart disease of native coronary artery without angina pectoris; Z95.1 Presence of aortocoronary bypass graft; Z90.49 Acquired absence of other specified parts of digestive tract; Z88.5 Allergy status to narcotic agent; R40.2362 Coma scale, best motor response, obeys commands, at arrival to emergency department; R40.2142 Coma scale, eyes open, spontaneous, at arrival to emergency department; R40.2252 Coma scale, best verbal response, oriented, at arrival to emergency department
CPT/HCPCS: 36415; 36430; 71045; 71275; 74176; 80053; 81003; 81015; 82607; 82728; 82746; 83010; 83540; 83550; 83605; 83615; 83690; 83735; 83880; 84484; 85007; 85014; 85018; 85025; 85027; 85049; 86850; 86900; 86901; 87040; 87633; 87804; 93005; 93970; 94640; J2916; J3490; J7620; P9016; Q9967

== ENCOUNTER 2019-10-29 08:26 | Day surgery (SDC) | payer MEDICARE ==
[2019-10-29] MEDS ORDERED: Sodium Chloride 0.9% 20 ML ONE (08:51)
[2019-10-29 14:47] VITALS: BP 150/66; TEMP 99.8
== END 2019-10-29 14:48 | disposition home or self-care (01) ==
LOC: ONC/OP 08:26
PROVIDERS: ATTEND Internal Medicine
PROC: 30233N1 Transfusion of Nonautologous Red Blood Cells into Peripheral Vein, Percutaneous Approach (ICD-10-PCS; principal; 2019-10-29)
DX: D64.9 Anemia, unspecified (principal); Z88.5 Allergy status to narcotic agent
CPT/HCPCS: 36430; 85014; 85018; 86850; 86900; 86901; P9016

== ENCOUNTER 2019-11-09 13:35 | Inpatient (IN) | payer MEDICARE ==
[2019-11-09 14:13] LABS: #Eosinphils 0.1 thou/uL (0.0-0.7); #Lymphocytes 1.2 thou/uL (1.20-3.40); #Neutrophils 8.2 thou/uL (1.40-6.50); %Basophils 0.1 % (0.0-1.0); %Eosinophils 0.8 % (0.0-10.0); %Lymphocytes 11.1 % (21.0-51.0); %Monocytes 9.6 % (0.0-10.0); %Neutrophils 78.4 % (42.0-75.0); Hemoglobin 8.5 g/dL (14.0-18.0); Mean Corpuscular HGB CONC 30.7 g/dL (32.0-36.0); Mean Corpuscular Volume 94.4 fL (78.0-98.0); Mean Platelet Volume 6.5 fL (7.4-10.4); Platelet Count 598 thou/uL (130-400); RBC Distribution Width 16.3 % (11.5-14.5); Red Blood Cell (RBC) Count 2.93 mill/uL (4.70-6.10); White Blood Cell (WBC) Count 10.4 thou/uL (4.8-10.8)
--- NOTE | 2019-11-09 14:34 | RAD ---
PORTABLE CHEST 1 VIEW: DATE: 11/09/2019. TIME: 1:54 PM. HISTORY: Weakness, shortness of breath with exertion. Liposarcoma. FINDINGS: Comparison is made with the exam of 08/08/2019. Changes of median sternotomy are again seen. Chronic parenchymal changes in the right lower lung are again noted. The heart size is normal. The aorta is tortuous. The lungs are expanded without loba r consolidation, pneumothoraces, or pleural effusions. IMPRESSION: No acute process. POS: [facility]
[2019-11-09 14:39] LABS: INR-International Normal Ratio 1.3; Prothrombin Time 16.2 sec (12.0-14.7)
[2019-11-09 14:58] LABS: ALT (SGPT) 20 U/L (8-55); AST (SGOT) 29 U/L (5-34); Albumin 2.6 g/dL (3.4-4.8); Alkaline Phosphatase 183 U/L (40-110); Anion Gap 14 mmol/L (10-20); BUN (Urea Nitrogen) 20 mg/dL (8.4-25.7); Bilirubin, Total 0.2 mg/dL (0.2-1.2); CK (CPK) 10 U/L (30-200); Calc. Creatinine Clearance 0 mL/min (70-130); Calcium 9.2 mg/dL (7.8-10.44); Carbon Dioxide 20 mmol/L (23-31); Chloride 102 mmol/L (98-107); Estimated GFR-MDRD Greater than 90; Globulin 5.2 g/dL (2.4-3.5); Glucose 102 mg/dL (83-110); Iron 19 ug/dL (65-175); Iron Binding Capacity, Total 101 mcg/dL (261-462); Magnesium 2.1 mg/dL (1.6-2.6); Potassium 4.9 mmol/L (3.5-5.1); Protein, Total 7.8 g/dL (5.8-8.1); Sodium 131 mmol/L (136-145)
[2019-11-09] MEDS ORDERED: Iopamidol-370 76% 500 ML 1 ML ONE (15:18)
[2019-11-09] MEDS ORDERED: Lorazepam 2 MG/ML VIAL ONE (16:22)
--- NOTE | 2019-11-09 16:38 | CT ---
CT ANGIOGRAM CHEST WITH CONTRAST: 11/09/19 HISTORY: Shortness of breath. Tachycardia. COMPARISON: Chest radiograph same day for reference. Also CTA of the chest 08/10/19. FINDINGS: CT angiogram chest performed after the intravenous administration of contrast. 3D rendering is provid ed. No proximal segmental pulmonary arterial filling defect. The aortic contour is nonaneurysmal. Incomplete evaluation of a large left retroperitoneal mass although it does appear to be much greater in size. The AP dimension is 13 cm, previously about 8.5 cm. Postsurgical change right lung base. No pneumothorax. No effusion. No confluent air space consolidati on. No significant pulmonary edema. Small pulmonary bleb left upper lobe. Multiple midline sternotomy wires. No acute displaced fracture or malalignment of the ribs. There is a postoperative defect right posterior ribs. IMPRESSION: 1. No pulmonary embolism. 2. No evidence for pneumonia or other acute intrathoracic abnormality. 3. Marked interval size increase left retroperitoneal mass. Code: CR. Dr. Jhaveri notified of the findings via telephone at 4:10 p.m. POS: [facility]
[2019-11-09 17:56] LABS: Troponin I 0.012 ng/mL (< 0.028)
[2019-11-09] MEDS ORDERED: Ondansetron PF 4 MG/2 ML Vial IVP PRN (18:45)
[2019-11-09] MEDS ORDERED: Ondansetron ODT 4 MG TAB SL PRN (18:45)
[2019-11-09] MEDS ORDERED: Acetaminophen 325 MG TAB PO PRN (18:45)
[2019-11-09] MEDS ORDERED: Senokot S 8.6-50 MG TAB PO PRN (18:47)
[2019-11-09] MEDS ORDERED: ALPRAZolam 0.25 MG TAB PO PRN (18:49)
[2019-11-09] MEDS ORDERED: Iron, Sodium Ferric Gluconate 125 MG in Sodium Chloride 0.9% 100 ML IVPB SCH (19:00)
[2019-11-09] MEDS ORDERED: Sodium Chloride 0.9% 1,000 ML IV SCH (19:00)
[2019-11-09] MEDS: Atorvastatin Calcium 40 MG TAB PO SCH (20:10)
[2019-11-09] MEDS: Metoprolol Tartrate 25 MG TAB PO SCH (20:10)
--- NOTE | 2019-11-10 00:59 | HP ---
CHIEF COMPLAINT: Shortness of breath. HISTORY OF PRESENT ILLNESS: The patient is a 79-year-old male with a past medical history of CAD, status post CABG; hypertension; and liposarcoma, who presents to the hospital with complaints of shortness of breath x1 day. 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 He states that he was in his good health, however, also all of a sudden after breakfast got very short of breath. He stated that his primary care doctor, Dr. Copeland, came and did a home visit and asked him to come into the ER for further evaluation. The patient states that later on in the afternoon, he started having some chest tightness and a headache, so he came into the hospital for further evaluation. The patient denies any fevers or chills. Denies any recent sick contacts. The patient states that he has been taking new medications for chronic hiccups about 3 days ago and that helped his hiccups. Otherwise, no new change of medications. He denies any diarrhea. He denies any poor appetite. He states that he has been eating well. He also states that he is going to have surgery in November in [facility] and wanted to come in today to get his shortness of breath checked out. PAST MEDICAL HISTORY: He has a history of CAD, hypertension, and the liposarcoma, also anemia. PAST SURGICAL HISTORY: 1. He has had coronary artery bypass x2 vessels. 2. He had a surgical resection of the portion of the spleen. 3. Cholecystectomy. 4. Partial colon resection. 5. Right middle lobe resection. 6. Status post left patella tendon repair. MEDICATIONS: He is on aspirin 81 mg daily, metoprolol 25 mg daily, Xanax 0.25 b.i.d. p.r.n., and Prilosec daily. ALLERGIES: HE IS ALLERGIC TO CODEINE AND HYDROCODONE. FAMILY HISTORY: Positive for hypertension. SOCIAL HISTORY: He is , lives with his . Denies any drug use. 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 Drinks alcohol occasionally. No smoking history. He is a full code. REVIEW OF SYSTEMS: All negative except for the ones mentioned above in the HPI. PHYSICAL EXAMINATION: VITAL SIGNS: Temperature of 97.7, heart rate of 118, 100% on room air, blood pressure 174/74. GENERAL: He is awake, alert, and oriented x3. Does not appear in distress. The patient appears to be comfortable, resting in bed. No oxygen use. CARDIOVASCULAR: S1, S2 present. Sinus tach. LUNGS: Clear to auscultation. No rhonchi or wheezes noted. ABDOMEN: Soft and nontender. Bowel sounds are present x2. EXTREMITIES: No edema. Pedal pulses are present x2. NEUROVASCULAR: No focal deficits noted. SKIN: No cuts, lesions, or bruises noted. HEENT: He does have some oral mucosa that appears to be dry. Also, he has some pale conjunctiva. LABORATORY RESULTS: WBCs of 10.4, hemoglobin of 8.5, hematocrit of 27.7, platelets of 598. His retic count that was done couple days ago indicated 2.6, which is normal. Chemistry; sodium of 131, potassium of 4.9, BUN of 20, creatinine 0.79. Iron is 19, TIBC is 101. His ferritin is 4924. Troponin x2 have been negative. He underwent a CTA to rule out a PE, there was no PE. No evidence of pneumonia, but he did have significant interval increase in the retroperitoneal mass. ASSESSMENT AND PLAN: The patient is a 79-year-old male, who presents to the hospital with complaints of shortness of breath; 1. Shortness of breath, it could be multifactorial, could be a combination of anxiety with his low H and H with possible some dehydration. Also cardiac event is possible. His troponin x2 were negative. We will get an echocardiogram. Given the fact that patient is going to go for surgery in November and he requested that he has a brazing machine setter and wanted to see his brazing machine setter, we will consult Cardiology. EKG as indicated only showed sinus tach. I will also start him on some gentle hydration and see if that helps and also continue his anxiolytic. Upon talking to the patient, he felt that normally his anxiety attacks are little bit different than this and he was concerned especially with his significant shortness of breath, however, per the ER record notes, I did not see any hypoxia that was noted, bony tachycardia that was noted. 2. Anemia, it is around his baseline. We will give him IV iron x1. We will also continue his oral iron. His BUN is normal and does not appear to have any signs of bleeding. He denies any dark stools. We will continue to monitor. If his H and H drops, may require transfusion. 3. Coronary artery disease. We will continue his home medications. 4. Deep venous thrombosis prophylaxis. We will put patient on Lovenox and SCDs. Job ID: [id number]
[2019-11-10 04:29] LABS: #Eosinphils 0.1 thou/uL (0.0-0.7); #Monocytes 0.8 thou/uL (0.11-0.59); #Neutrophils 7.2 thou/uL (1.40-6.50); %Eosinophils 0.8 % (0.0-10.0); %Lymphocytes 11.2 % (21.0-51.0); %Monocytes 9.2 % (0.0-10.0); %Neutrophils 78.8 % (42.0-75.0); Hemoglobin 6.7 g/dL (14.0-18.0); Mean Corpuscular HGB CONC 30.7 g/dL (32.0-36.0); Mean Corpuscular Hemoglobin 28.8 pg (27.0-31.0); Mean Corpuscular Volume 93.9 fL (78.0-98.0); Mean Platelet Volume 5.9 fL (7.4-10.4); Platelet Count 567 thou/uL (130-400); Red Blood Cell (RBC) Count 2.32 mill/uL (4.70-6.10); White Blood Cell (WBC) Count 9.1 thou/uL (4.8-10.8)
[2019-11-10 04:56] LABS: Anion Gap 12 mmol/L (10-20); BUN (Urea Nitrogen) 14 mg/dL (8.4-25.7); Calc. Creatinine Clearance 72 mL/min (70-130); Calcium 8.3 mg/dL (7.8-10.44); Carbon Dioxide 20 mmol/L (23-31); Chloride 108 mmol/L (98-107); Estimated GFR-MDRD Greater than 90; Glucose 66 mg/dL (83-110); Sodium 136 mmol/L (136-145)
[2019-11-10] MEDS: Ferrous Sulfate 325 MG TAB PO SCH ×2 (07:42→18:50)
[2019-11-10] MEDS ORDERED: Enoxaparin Sodium 40 MG/0.4 ML SYRINGE SC SCH (09:00)
--- NOTE | 2019-11-10 12:20 | CON ---
DATE OF CONSULTATION: 11/10/2019 REASON FOR CONSULTATION: Shortness of breath, abnormal EKG. 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 The patient has a history of a sarcoma, abdominal, and had surgery to have that removed about 14 years ago. Subsequently, he had some metastasis to his lung, had a successful wedge resection. He has recently been found to have recurrence of the tumor in the abdomen and is scheduled for surgery. The patient had abrupt onset of shortness of breath yesterday. He said he got up and has had trouble breathing, came to the emergency room. He got a CT pulmonary angiogram, which was negative for thrombus. He was found to be very anemic. No chest pain or pressure. PAST HISTORY: The patient has a history of coronary artery bypass grafting, bypass was done in 2001. In 2003, he underwent stress testing. He had no ischemia. In 2005, he underwent cardiac catheterization, revealed: 1. Left main normal. 2. LAD, long 60% to 70% plaque. 3. Internal mammary graft patent, approximately 60% anastomotic lesion in the internal mammary graft, did not appear to be flow limiting. 4. Diagonal graft patent. 5. Circumflex, 50% proximal severe disease in a very small branches distally. 6. Right coronary, nonobstructive plaque. He has been treated medically for the coronary artery disease since then. MEDICATIONS: At home, included: 1. Aspirin. 2. Metoprolol 25 mg a day. 3. Thiamine. 4. Megestrol. 5. Glimepiride. REVIEW OF SYSTEMS: CONSTITUTIONAL: Positive for some weakness and fatigue. VISION: No changes. HEARING: No changes. PULMONARY: No cough or wheezing. GASTROINTESTINAL: No nausea, vomiting, or diarrhea. SKIN: No rashes. NEUROLOGIC: No unilateral weakness or numbness. PSYCHIATRIC: No unusual depression or anxiety. PHYSICAL EXAMINATION: GENERAL: This is a pleasant 79-year-old gentleman. He does look somewhat underweight, 5 feet 7 inches tall, 128 pounds. VITAL SIGNS: Blood pressure 136/66 and pulse 99 and it is regular. LUNGS: Clear. CARDIAC: Normal S1 and normal S2. There is no murmur, rub, or gallop. ABDOMEN: Soft and nontender. EXTREMITIES: Warm and dry. No clubbing. No cyanosis or edema. Good peripheral pulses. LABORATORY DATA: Ferritin level was high at 4924, but the iron level was low at 19. CBC: The patient's hemoglobin yesterday was 8.5, he did receive some fluid, this morning it is 6.7. EKG did show what looked like some ischemia. EKG at 1351 hours looked normal. EKG done at [address] depression in V4, V5, and V6. Echocardiogram is pending, it has been done, I will need to review that. ASSESSMENT: 1. Shortness of breath. 2. Some ischemia on 1 EKG. 3. Previous bypass surgery. 4. Distal disease in the circumflex, not amenable to percutaneous therapy. 5. Previous bypass to the internal mammary and diagonal graft. 6. Upcoming need for abdominal surgery. 7. Anemia of unclear etiology. PLAN: 1. Repeat blood count. 2. Review echo. 3. May need cardiac catheterization in view of upcoming surgery. Job ID: [id number]
[2019-11-10 12:30] LABS: #Eosinphils 0.1 thou/uL (0.0-0.7); #Monocytes 0.8 thou/uL (0.11-0.59); #Neutrophils 7.7 thou/uL (1.40-6.50); %Basophils 0.2 % (0.0-1.0); %Eosinophils 1.2 % (0.0-10.0); %Lymphocytes 10.5 % (21.0-51.0); %Monocytes 8.3 % (0.0-10.0); %Neutrophils 79.9 % (42.0-75.0); Hemoglobin 6.9 g/dL (14.0-18.0); Mean Corpuscular HGB CONC 30.3 g/dL (32.0-36.0); Mean Corpuscular Hemoglobin 28.4 pg (27.0-31.0); Mean Corpuscular Volume 93.5 fL (78.0-98.0); Mean Platelet Volume 5.6 fL (7.4-10.4); Platelet Count 603 thou/uL (130-400); RBC Distribution Width 16.4 % (11.5-14.5); Red Blood Cell (RBC) Count 2.42 mill/uL (4.70-6.10); White Blood Cell (WBC) Count 9.7 thou/uL (4.8-10.8)
--- NOTE | 2019-11-10 18:55 | PDOC.HOSPP ---
- Subjective Encounter Date: 11/10/19 Subjective: The patient denied any shortness of breath at this time. - Objective Vital Signs & Weight: Vital Signs (12 hours) Temp Pulse Resp BP BP Pulse Ox 11/10/19 17:53 99.7 F H 18 136/65 97 11/10/19 17:30 99.5 F 18 134/62 97 11/10/19 15:33 99.3 F 108 H 20 135/74 97 11/10/19 11:15 99.2 F 99 19 126/58 L 99 11/10/19 07:40 98.1 F 99 18 136/66 99 Weight Admit Weight 128 lb 3.04 oz Weight 128 lb 4.8 oz Most Recent Monitor Data Heart Rate from ECG 96 I&O: 11/09/19 11/10/19 11/11/19 06:59 06:59 06:59 Intake Total 1100 0 Output Total 325 Balance 775 0 Result Diagrams: 11/10/19 12:14 11/10/19 04:12 Hospitalist ROS - Medication Medications: Active Medications Generic Name Dose Route Start Last Admin Trade Name Freq PRN Reason Stop Dose Admin Alprazolam 0.25 mg 11/09/19 18:49 11/10/19 15:20 Xanax PO 0.25 mg Q4H PRN Administration Anxiety Atorvastatin Calcium 40 mg 11/09/19 21:00 11/09/19 20:10 Lipitor PO 40 mg HS AMANDO Administration Ferrous Sulfate 325 mg 11/10/19 08:00 11/10/19 18:50 Feosol PO 325 mg BID-WM AMANDO Administration Metoprolol Tartrate 25 mg 11/09/19 21:00 11/09/19 20:10 Lopressor PO 25 mg HS AMANDO Administration Pantoprazole Sodium 40 mg 11/09/19 21:00 11/09/19 20:10 Protonix PO 40 mg HS AMANDO Administration - Exam General Appearance: awake alert ENT: normocephalic atraumatic Neck: supple, no JVD Heart: RRR Respiratory: normal chest expansion, no tachypnea Extremities: no cyanosis, no clubbing Neurological: cranial nerve grossly intact Hosp A/P (1) SOB (shortness of breath) Code(s): R06.02 - SHORTNESS OF BREATH Status: Acute (2) Symptomatic anemia Code(s): D64.9 - ANEMIA, UNSPECIFIED Status: Acute (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 Check H&H in the morning. Cardiology considering cardiac cath for preoperative evaluation since the patient is scheduled to undergo surgery for his liposarcoma at [facility]. The patient and his are not sure if they want to pursue the cardiac cath at this time.
[2019-11-10] MEDS: Atorvastatin Calcium 40 MG TAB PO SCH (20:14)
[2019-11-10] MEDS: Metoprolol Tartrate 25 MG TAB PO SCH (20:14)
[2019-11-11 04:19] LABS: Hemoglobin 9.8 g/dL (14.0-18.0); Platelet Count 578 thou/uL (130-400)
[2019-11-11 04:34] LABS: Calc. Creatinine Clearance 69 mL/min (70-130); Estimated GFR-MDRD Greater than 90
[2019-11-11] MEDS: Ferrous Sulfate 325 MG TAB PO SCH ×2 (07:56→18:19)
[2019-11-11] MEDS: Acetaminophen 325 MG TAB PO PRN ×2 (09:59→20:25)
[2019-11-11] MEDS ORDERED: Communication Order-Pharmacy FS SCH (10:30)
--- NOTE | 2019-11-11 10:51 | PRG ---
DATE OF SERVICE: 11/11/2019 SUBJECTIVE: Mr. Hull feels much better today. He received 2 units of packed red blood cells. OBJECTIVE: VITAL SIGNS: Blood pressure is 134/68, pulse is 90. LUNGS: Clear. CARDIAC: Normal S1. Normal S2. ABDOMEN: Soft, nontender. ASSESSMENT: 1. Status post severe anemia, possibly related to bleeding into intraabdominal site. It is unclear at this point. 2. ST-depression on one EKG in the emergency room. 3. Needs upcoming surgery. PLAN: I have recommended the patient to undergo cardiac catheterization with diagnostic tests tomorrow to see what the status of his arteries and bypass are. He would not be a candidate for intervention tomorrow as he is going to not be a candidate for dual anti-platelet drugs at this time, but I think it would at least help us in the postoperative management as well as preoperative risks staging. Discussed catheterization risks, stroke, heart attack, iodine allergy, interference of blood supply to leg or kidney. Discussed that if he has substantial drop in his blood counts tomorrow, then I would recommend not proceeding to cardiac catheterization, but consideration for transfer to [facility] for surgery in which case the surgery would be more urgent in view if he is still bleeding. If the patient's hemoglobin is stable or only has slight drop tomorrow, we will proceed to catheterization. Job ID: [id number]
--- NOTE | 2019-11-11 11:58 | PDOC.HOSPP ---
- Subjective Encounter Date: 11/11/19 Subjective: No new complaints. - Objective Vital Signs & Weight: Vital Signs (12 hours) Temp Pulse Resp BP Pulse Ox 11/11/19 07:54 98.7 F 99 18 134/68 96 11/11/19 04:12 98.8 F 92 18 124/62 97 Weight Admit Weight 128 lb 3.04 oz Weight 128 lb 8 oz Most Recent Monitor Data Heart Rate from ECG 96 I&O: 11/10/19 11/11/19 11/12/19 06:59 06:59 06:59 Intake Total 1100 1920 Output Total 325 300 Balance 775 1620 Result Diagrams: 11/11/19 03:55 11/11/19 03:55 Hospitalist ROS - Medication Medications: Active Medications Generic Name Dose Route Start Last Admin Trade Name Freq PRN Reason Stop Dose Admin Acetaminophen 650 mg 11/10/19 15:26 11/11/19 09:59 Tylenol PO 650 mg Q4H PRN Administration Fever>101/(Mi/Mod/Sev) Pain Alprazolam 0.25 mg 11/09/19 18:49 11/10/19 15:20 Xanax PO 0.25 mg Q4H PRN Administration Anxiety Atorvastatin Calcium 40 mg 11/09/19 21:00 11/10/19 20:14 Lipitor PO 40 mg HS AMANDO Administration Ferrous Sulfate 325 mg 11/10/19 08:00 11/11/19 07:56 Feosol PO 325 mg BID-WM AMANDO Administration Metoprolol Tartrate 25 mg 11/09/19 21:00 11/10/19 20:14 Lopressor PO 25 mg HS AMANDO Administration Pantoprazole Sodium 40 mg 11/09/19 21:00 11/10/19 20:14 Protonix PO 40 mg HS AMANDO Administration - Exam General Appearance: awake alert Neck: supple Heart: RRR Respiratory: normal chest expansion, no tachypnea Extremities: no cyanosis Neurological: cranial nerve grossly intact Hosp A/P (1) SOB (shortness of breath) Code(s): R06.02 - SHORTNESS OF BREATH Status: Acute (2) Symptomatic anemia Code(s): D64.9 - ANEMIA, UNSPECIFIED Status: Acute (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 His hemoglobin level increased appropriately. Repeat H&H in the morning and if his hemoglobin level stable or slightly decreased, pain cardiology planning for diagnostic cardiac catheterization.
[2019-11-11] MEDS: Metoprolol Tartrate 25 MG TAB PO SCH (20:25)
[2019-11-11] MEDS: Atorvastatin Calcium 40 MG TAB PO SCH (20:25)
[2019-11-12 04:54] LABS: #Basophils 0.1 thou/uL (0.0-0.2); #Eosinphils 0.1 thou/uL (0.0-0.7); #Lymphocytes 1.3 thou/uL (1.20-3.40); #Monocytes 1.2 thou/uL (0.11-0.59); #Neutrophils 8.6 thou/uL (1.40-6.50); %Basophils 0.5 % (0.0-1.0); %Eosinophils 1.1 % (0.0-10.0); %Lymphocytes 11.7 % (21.0-51.0); %Neutrophils 75.7 % (42.0-75.0); Hemoglobin 10.6 g/dL (14.0-18.0); Mean Corpuscular HGB CONC 30.4 g/dL (32.0-36.0); Mean Corpuscular Hemoglobin 28.5 pg (27.0-31.0); Mean Corpuscular Volume 93.8 fL (78.0-98.0); Mean Platelet Volume 6.1 fL (7.4-10.4); Platelet Count 593 thou/uL (130-400); RBC Distribution Width 16.7 % (11.5-14.5); Red Blood Cell (RBC) Count 3.71 mill/uL (4.70-6.10); White Blood Cell (WBC) Count 11.3 thou/uL (4.8-10.8)
[2019-11-12] MEDS ORDERED: Sodium Chloride 0.9% 1,000 ML IV SCH (06:00)
[2019-11-12] MEDS: Ferrous Sulfate 325 MG TAB PO SCH (06:07)
[2019-11-12] MEDS ORDERED: Midazolam HCl 2 mg/2 ml Vial ONE (09:01)
[2019-11-12] MEDS ORDERED: Fentanyl 100 MCG/2 ML VIAL ONE (09:01)
[2019-11-12] MEDS ORDERED: Metoprolol Tartrate 5 MG/5 ML VIAL ONE (09:04)
[2019-11-12] MEDS ORDERED: Iopamidol 370 76% 100 ML VIAL ONE (09:24)
[2019-11-12] MEDS ORDERED: Nitroglycerin 0.4 MG TAB (25 Tab Bottle) SL PRN (09:41)
[2019-11-12] MEDS ORDERED: Sodium Chloride 0.9% 200 ML IV PRN (09:41)
[2019-11-12] MEDS: Acetaminophen 325 MG TAB PO PRN (13:29)
--- NOTE | 2019-11-12 15:29 | EKG ---
Test Reason : Blood Pressure : / mmHG Vent. Rate : 110 BPM Atrial Rate : 110 BPM P-R Int : 176 ms QRS Dur : 076 ms QT Int : 318 ms P-R-T Axes : 054 043 059 degrees QTc Int : 430 ms Sinus tachycardia Nonspecific ST and T wave abnormality Abnormal ECG Confirmed by JOSS WEST DO ([id number]), video editor NURY DELANEY ([id number]) on 11/12/2019 3:29:19 PM Referred By: Confirmed By:JOSS WEST DO
--- NOTE | 2019-11-12 15:29 | EKG ---
Test Reason : Blood Pressure : / mmHG Vent. Rate : 103 BPM Atrial Rate : 103 BPM P-R Int : 172 ms QRS Dur : 088 ms QT Int : 342 ms P-R-T Axes : 065 055 212 degrees QTc Int : 448 ms Sinus tachycardia Abnormal ECG Confirmed by JOSS WEST DO ([id number]), videotape editor NURY DELANEY ([id number]) on 11/12/2019 3:29:21 PM Referred By: Confirmed By:JOSS WEST DO
[2019-11-12 15:54] VITALS: BP 129/63; TEMP 98.3
[2019-11-12] MEDS ORDERED: Metoprolol Tartrate 25 MG TAB PO SCH (21:00)
--- NOTE | 2019-11-14 10:50 | DIS ---
DATE OF ADMISSION: 11/09/2019 DATE OF DISCHARGE: 11/12/2019 DISCHARGE DIAGNOSES: 1. Shortness of breath. 2. Symptomatic anemia. 3. Liposarcoma. 4. Coronary artery disease. DISCHARGE MEDICATIONS: 1. Xanax 0.25 mg orally 4 times daily as needed for anxiety. 2. Omeprazole 20 mg orally nightly. 3. Mirtazapine 50 mg orally nightly. 4. Aspirin 81 mg orally daily. 5. Chlorpromazine 50 mg orally t.i.d. as needed for hiccups. 6. Thiamine 50 mg orally daily. 7. Megestrol 400 mg orally daily. 8. Glimepiride 3 mg orally daily. 9. Metoprolol tartrate 25 mg orally twice daily. HISTORY OF PRESENT ILLNESS AND HOSPITAL COURSE: The patient is a 79-year-old male with past medical history of coronary artery disease status post CABG, hypertension, and liposarcoma who presented to the hospital with complaints of shortness of breath for 1 day. The patient was found to be anemic and he did complain of anxiety and possible panic attacks. Initial troponins were done and they were unremarkable. The patient received 2 units of packed RBCs and his hemoglobin level improved to 10 prior to discharge. He was seen by Cardiology and they recommended cardiac catheterization due to his severe shortness of breath and ST depressions on EKG in the emergency room. In addition to the patient's need to undergo surgery, which was scheduled next week in [facility] for his tumor. The procedure was diagnostic with no intention to intervene. The results showed 50% left main stenosis with calcification, 50% proximal LAD, 70% mid LAD with calcium, 70% proximal circumflex, 80% distal circumflex, and 30% RCA large vessel. DOWLING to LAD, SVG to diagonal occluded and left ventricular ejection fraction is 55%. The patient was stable for discharge after the procedure and he is planned to follow at [facility] next week for surgery. Job ID: [id number]
--- NOTE | 2019-11-15 04:44 | PQF ---
KINGA LONG MOEZ [id number] [id number] [id number] CLINICAL DOCUMENTATION CLARIFICATION FORM: POST DISCHARGE Addendum to original discharge summary date: ____ Late entry note date: __ DATE:11/15/2019 ATTN: Joanne Blake Please exercise your independent, professional judgment in responding to the clarification form. Clinical indicators are provided on the bottom of this form for your review In your clinical opinion based on clinical findings below, can you please identify the etiology of Tachycardia if due to: Please check appropriate box(s): [ ] CAD [ > ] Anemia [ ] Panic Attack [> ] Dehydration [ ] Other diagnosis [ ] Unable to determine For continuity of documentation, please document condition throughout progress notes and discharge summary. Thank You. CLINICAL INDICATORS - SIGNS / SYMPTOMS / LABS Vital signs 11/08 BP 115/71, Pulse 115, resp 22, Temp 97.6 Electrocardiogram 11/08 Impression: Sinus tachycardia, Nonspecific St and t wave abnormality ED nots p8 11/08 Tachycardic to 110, 4 out 6 systolic ejection murmur with diastolic regurgitation H&P p2 11/08 SOB it could be multifactorial, could be combination of anxiety with his los H&H with possible dehydration H&P p1 11/08 I did not see any hypoxia that was noted, nony tachycardia that was noted RISK FACTORS H&P p1 11/08 79 year-old Male H&P p1 11/08 HTN H&P p1 11/08 CAD H&P p1 11/08 Liposarcoma H&P p1 11/08 Anemia TREATMENTS: AUG 25 IVF NS 1L AUG 25 -Lopressor 52mg oral AUG 25 Ativan 2mg oral AUG 25 IV Ferric Sodium Gluconate Complex 110ml Blood bank 11/09 Transfused PRBC Electrocardiogram 11/08 Dr Mello Cardiac Catheterization [facility] 11/11 Dr Mcdonough Cardiology consult - Dr Mcdonough (This form is maintained as a part of the permanent medical record) 2014 [employer] All Rights Reserved [email or web address]
== END 2019-11-12 16:48 | disposition home or self-care (01) | DRG 812 ==
LOC: ERS 13:35 → 2NO 18:35
PROVIDERS: ADMIT Internal Medicine; ATTEND Internal Medicine
PROC: 30233N1 Transfusion of Nonautologous Red Blood Cells into Peripheral Vein, Percutaneous Approach (ICD-10-PCS; 2019-11-10)
PROC: 4A023N7 Measurement of Cardiac Sampling and Pressure, Left Heart, Percutaneous Approach (ICD-10-PCS; principal; 2019-11-12)
PROC: B2111ZZ Fluoroscopy of Multiple Coronary Arteries using Low Osmolar Contrast (ICD-10-PCS; 2019-11-12)
PROC: B2151ZZ Fluoroscopy of Left Heart using Low Osmolar Contrast (ICD-10-PCS; 2019-11-12)
PROC: B2181ZZ Fluoroscopy of Left Internal Mammary Bypass Graft using Low Osmolar Contrast (ICD-10-PCS; 2019-11-12)
PROC: B2121ZZ Fluoroscopy of Single Coronary Artery Bypass Graft using Low Osmolar Contrast (ICD-10-PCS; 2019-11-12)
DX: D64.9 Anemia, unspecified (principal); C48.0 Malignant neoplasm of retroperitoneum; F41.0 Panic disorder [episodic paroxysmal anxiety]; I10 Essential (primary) hypertension; R94.31 Abnormal electrocardiogram [ECG] [EKG]; I25.10 Atherosclerotic heart disease of native coronary artery without angina pectoris; E86.0 Dehydration; Z90.49 Acquired absence of other specified parts of digestive tract; Z95.1 Presence of aortocoronary bypass graft; Z88.6 Allergy status to analgesic agent; Z88.5 Allergy status to narcotic agent; Z90.81 Acquired absence of spleen; Z79.899 Other long term (current) drug therapy; Z79.82 Long term (current) use of aspirin
CPT/HCPCS: 36415; 36430; 71045; 71275; 76942; 80048; 80053; 82550; 82565; 82728; 83010; 83540; 83550; 83605; 83615; 83735; 84484; 85014; 85018; 85025; 85049; 85610; 85730; 86850; 86900; 86901; 93005; 93306; 93459; 94760; 96374; 99152; 99153; C1769; J1644; J2060; J2250; J2916; J3010; J3490; P9016; Q9967

== ENCOUNTER 2020-01-09 20:36 | Emergency (ER) | payer MEDICARE ==
[~2020-01-09 20:36] MED LIST: Iopamidol-370 76% 500 ML 1 ML ONE
[2020-01-09 21:34] LABS: #Eosinphils 0.1 thou/uL (0.0-0.7); #Lymphocytes 0.7 thou/uL (1.20-3.40); #Monocytes 1.3 thou/uL (0.11-0.59); #Neutrophils 15.3 thou/uL (1.40-6.50); %Eosinophils 0.5 % (0.0-10.0); %Lymphocytes 4.1 % (21.0-51.0); %Monocytes 7.5 % (0.0-10.0); %Neutrophils 87.9 % (42.0-75.0); Mean Corpuscular HGB CONC 31.3 g/dL (32.0-36.0); Mean Corpuscular Hemoglobin 29.7 pg (27.0-31.0); Platelet Count 891 thou/uL (130-400); Red Blood Cell (RBC) Count 4.03 mill/uL (4.70-6.10); White Blood Cell (WBC) Count 17.4 thou/uL (4.8-10.8)
[2020-01-09 21:56] LABS: ALT (SGPT) 14 U/L (8-55); AST (SGOT) 15 U/L (5-34); Alkaline Phosphatase 159 U/L (40-110); Anion Gap 13 mmol/L (10-20); BUN (Urea Nitrogen) 18 mg/dL (8.4-25.7); Bilirubin, Total 0.4 mg/dL (0.2-1.2); Calc. Creatinine Clearance 0 mL/min (70-130); Carbon Dioxide 32 mmol/L (23-31); Chloride 91 mmol/L (98-107); Estimated GFR-MDRD 84; Globulin 4.6 g/dL (2.4-3.5); Glucose 171 mg/dL (83-110); Lipase 39 U/L (8-78); Magnesium 2.2 mg/dL (1.6-2.6); Potassium 4.1 mmol/L (3.5-5.1); Protein, Total 7.6 g/dL (5.8-8.1); Sodium 132 mmol/L (136-145)
[2020-01-09] MEDS ORDERED: diphenhydrAMINE 50 MG/ML VIAL ONE (22:16)
[2020-01-09] MEDS ORDERED: Prochlorperazine 10 MG/2 ML VIAL IVP SCH (22:30)
--- NOTE | 2020-01-09 22:39 | CT ---
CT abdomen and pelvis with IV contrast HISTORY: Abdomen pain. 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 FINDINGS: Small amount of left pleural fluid and compressive atelectasis at the left lung base. Calci fication within the coronary arteries and other arterial structures. Gallbladder surgically absent. Extensive postoperative changes of the left retroperitoneum are also n ow evident, with resection of the left kidney, spleen, and retroperitoneal mass. Fluid collections are present within the left side of the abdomen, the more anterior, favored to be intraperitoneal, is irregular shaped and measures up to 8.8 cm x 8.0 cm x 6.1 cm greatest diameters.. There is a thin peripherally enhancing wall. No internal gas. Within the retroperitoneum, a very irregular shaped fluid collection measures up to 11.1 cm x 6.1 cm x 4.9 cm greatest diameters. There is a thin enhancing wall and small internal pockets of gas. The stomach and proximal duodenum are distended with gas and fluid. Beyond the superior mesenteric ar gregoria, the duodenum and jejunum are not dilated. There is circumferential thickening of the pathak of the small bowel in the left upper quadrant, likely reactive from recent surgical manipulation. Suture rows are associated with the colon in the left upper quadrant. There is prominent fecal disten tion of the splenic flexure up to 8.7 cm diameter, just above the surgical anastomosis. Urinary bladder is unremarkable. There are degenerative changes throughout the lumbar spine. IMPRESSION : Extensive left retroperitoneal surgery/resection. Postoperative fluid collections are as detailed abo ve, favored to represent 2 dominant pockets, one more anterior/inferior intraperitoneal and the other more posterior superior and retroperitoneal. The posterior retroperitoneal postoperative fluid collection contains small pockets of gas. Clinical correlation regarding other signs and symptoms of infection/abscess is required. Impaction of fecal material at the splenic flexure, immediately proximal to a surgical anastomosis. 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 Small left pleural effusion. Atherosclerosis.
[2020-01-09 22:50] LABS: Bacteria/HPF None Seen HPF (None Seen); Bilirubin Negative (Negative); Blood, Urine Negative (Negative); Clarity Clear (Clear); Glucose, Urine (Dipstick) Normal (Negative); Ketone, Urine Trace mg/dL (Negative); Leukocyte Negative Leu/uL (Negative); Nitrite Negative (Negative); Protein, Urine (Dipstick) 30 mg/dL (Neg-Trace); RBC/HPF 0-3 HPF (0-3); Squamous Epithelial 0-3 HPF (0-3); Urobilinogen Normal mg/dL (Less than 2); WBC/HPF 0-3 HPF (0-3)
[2020-01-09] MEDS ORDERED: Piperacillin/Tazobactam 4.5 GM VIAL ONE (23:31)
[2020-01-10] MEDS ORDERED: Morphine 4 MG/ML VIAL ONE (00:16)
[2020-01-10] MEDS ORDERED: Vancomycin 1 GM/200 ML BAG ONE (00:16)
[2020-01-10] MEDS ORDERED: Ondansetron PF 4 MG/2 ML Vial ONE (00:18)
== END 2020-01-10 02:42 | disposition short-term general hospital (02) ==
LOC: ERS 20:36
DX: K68.11 Postprocedural retroperitoneal abscess (principal); K56.41 Fecal impaction; K90.49 Malabsorption due to intolerance, not elsewhere classified; I10 Essential (primary) hypertension; E11.9 Type 2 diabetes mellitus without complications; F41.9 Anxiety disorder, unspecified; Z79.899 Other long term (current) drug therapy
CPT/HCPCS: 74177; 80053; 81003; 81015; 83690; 83735; 85025; 87040; 96361; 96365; 96366; 96375; J0780; J1200; J2270; J2405; J2543; J3370; Q9967